=== PATIENT | female | born 1955 | race Caucasian/White ===

== ENCOUNTER 2024-07-05 18:17 | Emergency (ER) | payer OTHER, MEDICARE ==
[~2024-07-05] VITALS: Ht 162.6 cm; Wt 54.4 kg
[2024-07-05 18:31] VITALS: BP 100/49; PULSE 94; RESP 18; TEMP 98.5; O2SAT 100
== END 2024-07-05 18:30 | disposition left against medical advice (07) ==
LOC: EDH 18:17
DX: S00.01XA Abrasion of scalp, initial encounter (principal); C50.919 Malignant neoplasm of unspecified site of unspecified female breast; Z98.890 Other specified postprocedural states; W01.0XXA Fall on same level from slipping, tripping and stumbling without subsequent striking against object, initial encounter; Y93.89 Activity, other specified; Y92.89 Other specified places as the place of occurrence of the external cause; Y99.8 Other external cause status